=== PATIENT | female | born 1995 | race Caucasian/White ===

== ENCOUNTER 2016-09-27 16:51 | Observation (INO) | payer MEDICAID ==
--- NOTE | 2016-09-27 17:16 | ER Document Report ---
ED Medical Screen (RME) - General Stated Complaint: LUMP ON LEFT BREAST Mode of Arrival: Ambulatory Information source: Patient Notes: Patient reports a large palpable left breast that she attempted to pop and had green drainage. Patient reports symptoms started about a week ago. No fever. hx: None I have greeted and performed a rapid initial assessment of this patient. A comprehensive ED assessment and evaluation of the patient, analysis of test results and completion of the medical decision making process will be conducted by additional ED providers. Physical Exam - Vital signs Vitals: Temp Pulse Resp BP Pulse Ox 98.2 F 108 H 16 101/83 95 09/27/16 16:55 09/27/16 16:55 09/27/16 16:55 09/27/16 16:55 09/27/16 16:55 - General General appearance: Appears well, Alert In distress: None Course - Vital Signs Vital signs: Temp Pulse Resp BP Pulse Ox 98.2 F 108 H 16 101/83 95 09/27/16 16:55 09/27/16 16:55 09/27/16 16:55 09/27/16 16:55 09/27/16 16:55
[2016-09-27] MEDS ORDERED: NORMAL SALINE 1000 ML 1,000 ML IV ONE (19:12)
[2016-09-27] MEDS ORDERED: ONDANSETRON HCL INJ/PF 4 MG/2 ML SDV IV ONE (19:13)
[2016-09-27] MEDS ORDERED: HYDROMORPHONE HCL INJ/PF 2 MG/ML AMPULE IV ONE (19:13)
[2016-09-27] MEDS ORDERED: CLINDAMYCIN 600 MG/D5W RTU 50 ML IV ONE (19:15)
--- NOTE | 2016-09-27 19:27 | ER Document Report ---
ED Skin Rash/Insect Bite/Abscs - General Chief Complaint: Cyst Stated Complaint: LUMP ON LEFT BREAST Mode of Arrival: Ambulatory Information source: Patient Notes: 21-year-old female presents to the emergency department complaining of areas of tenderness and swelling to left breast. Patient reports first noted pimple- like area to the lateral left breast approximately 6 days ago which has increased in size, redness, and pain. Reports associated drainage and chills with unmeasured temperature at home. States is approximately 6 months and stopped breast-feeding one month ago. Denies nipple drainage. TRAVEL OUTSIDE OF THE [place] IN LAST 30 DAYS: No - HPI Patient complains to provider of: Tender/swollen area Onset/Duration: Worse Quality of pain: Achy Severity: Moderate Pain Level: 4 Skin Character: Abscess, Erythema, Tenderness, Warm Skin Temperature: Warm Quality of rash: Painful Similar symptoms previously: No Recently seen / treated by doctor: No - Related Data Allergies/Adverse Reactions: No Known Allergies Allergy (Unverified 09/27/16 17:16) Home Medications: Current Home Medications No Home Medications 09/27/16 [History] Past Medical History - General Information source: Patient - Social History Smoking Status: Current Every Day Smoker Chew tobacco use (# tins/day): No Frequency of alcohol use: None Drug Abuse: None Lives with: Family Family History: Reviewed & Not Pertinent Patient has suicidal ideation: No Patient has homicidal ideation: No - Medical History Medical History: Negative Renal/ Medical History: Denies: Hx Peritoneal Dialysis Surgical Hx: Negative - Immunizations Hx Diphtheria, Pertussis, Tetanus Vaccination: Yes Review of Systems - Review of Systems Constitutional: No symptoms reported EENT: No symptoms reported Cardiovascular: No symptoms reported Respiratory: No symptoms reported Gastrointestinal: No symptoms reported Genitourinary: No symptoms reported Female Genitourinary: No symptoms reported Musculoskeletal: No symptoms reported Skin: See HPI Hematologic/Lymphatic: No symptoms reported Neurological/Psychological: No symptoms reported -: Yes All other systems reviewed and negative Physical Exam - Vital signs Vitals: Temp Pulse Resp BP Pulse Ox 98.2 F 108 H 16 101/83 95 09/27/16 16:55 09/27/16 16:55 09/27/16 16:55 09/27/16 16:55 09/27/16 16:55 - General General appearance: Alert In distress: None - HEENT Head: Normocephalic, Atraumatic Eyes: Normal Pupils: PERRL - Respiratory Respiratory status: No respiratory distress Chest status: Nontender Breath sounds: Normal Chest palpation: Normal - Cardiovascular Rhythm: Regular Heart sounds: Normal auscultation Murmur: No Pulses: Normal: Radial Normal capillary refill: Yes - Abdominal Inspection: Normal Distension: No distension Bowel sounds: Normal Tenderness: Nontender Organomegaly: No organomegaly - Skin Skin Temperature: Warm Skin Moisture: Dry Skin Color: Normal Skin irregularity: Abscess, Erythema, Tender indurated area - approximately 5-6 cm diameter area of erythema, tenderness, warmth, skin thickening, central fluctuance, and eschar/necrotic tissue to the left lateral breast. No nipple changes or drainage. Course - Re-evaluation Re-evalutation: 09/27/16 19:30 Patient hemodynamically stable, in no distress, afebrile. Patient presentation and findings discussed with surgeon Dr. Diaz who agrees to evaluate patient in the emergency department, assume care, and admit for I&D. Plan discussed with patient who verbalized understanding and agrees with plan. - Vital Signs Vital signs: Temp Pulse Resp BP Pulse Ox 98.0 F 95 18 134/75 H 99 09/27/16 19:56 09/27/16 19:56 09/27/16 19:56 09/27/16 19:56 09/27/16 19:56 Discharge - Discharge Clinical Impression: Breast abscess Disposition: ADMITTED OBSERVATION Admitting Provider: Surgicalist - Dr. Diaz
--- NOTE | 2016-09-27 19:53 | HISTORY AND PHYSICAL E ---
History and Physical NAME: MATILDA RESTREPO : 1995 AGE: 21Y ADMITTED: 09/27/2016 ROOM: HISTORY OF PRESENT ILLNESS: The patient is a 21-year-old female patient presenting with history of left breast area pain, redness, increasing swelling for the past few days increasing in severity. The patient tolerated the pimple but she did not recollect how it started out and the area which was about a dime size and increased all the way about a couple of inches and some of the skin got darker in color with surrounding area, increasing redness, and started having more pain and came to the emergency room. PAST MEDICAL HISTORY: No medical issues. PAST SURGICAL HISTORY: No major surgeries. She is 6 months . She was breast-feeding until a few weeks ago, not currently. REVIEW OF SYSTEMS: Per examination. PHYSICAL EXAMINATION: GENERAL: She is an otherwise healthy looking 21-year-old female patient not in any distress. HEAD/NECK: No lymphadenopathy, no masses. LUNGS: Both lungs are clear to auscultation. CARDIOVASCULAR: Heart sounds regular, no murmurs or gallops. ABDOMINAL: Soft, nontender. No masses palpable. No hernia. BREASTS: Left breast, mostly in the upper outer quadrant and mid part of the left breast on the lateral side, there is an about 8-10 cm of erythema with induration of the skin. In the central part there is about a 4 cm area of skin necrosis with possible abscess underneath. There is some alveolar lymphadenopathy palpable. The other side of the breast is normal. IMPRESSION OVERALL: 1. Cellulitis of the left breast area. 2. Necrotic wound. 3. Probable underlying abscess. PLAN: Admit for IV antibiotic. Cellulitis debridement also to be done of the abscess. Unfortunately, she just ate and will not able to it, so will admit for IV antibiotic and then plan for possible debridement and drainage while in the hospital. DICTATING PHYSICIAN: JULI CABRAL M.D. [id number] PHY#: [id number] ID: [id number] JOB#: [id number] ACCT: [id number] cc:JULI CABRAL M.D. > [facility]
[2016-09-27] MEDS: AMPICILLIN SODIUM/SULBACTAM NA 3 GM in NORMAL SALINE 100 ML IV SCH (23:41)
[2016-09-27] MEDS ORDERED: CLINDAMYCIN 600 MG/D5W RTU 600 MG/50 ML RTUPB IV ONE (23:59)
[2016-09-28] MEDS ORDERED: NICOTINE 21 MG/24 HR PATCH.TD24 TD ONE (00:15)
[2016-09-28] MEDS: HYDROCODONE/ACETAMINOPHEN 5-325 MG TABLET PO PRN ×3 (00:18→13:26)
[2016-09-28] MEDS: AMPICILLIN SODIUM/SULBACTAM NA 3 GM in NORMAL SALINE 100 ML IV SCH ×3 (05:14→17:04)
[2016-09-28 05:15] LABS: ABSOLUTE BASOPHILS # (AUTO) 0.1 10^3/uL (0.0-0.2); ABSOLUTE EOSINOPHILS # (AUTO) 0.3 10^3/uL (0.0-0.6); ABSOLUTE LYMPHOCYTES (AUTO) 3.4 10^3/uL (0.5-4.7); BASOPHILS % (AUTO) 0.9 % (0-2); EOSINOPHILS % (AUTO) 3.1 % (0-6); HEMOGLOBIN 11.4 g/dL (12.0-15.5); HGB HCT DIFFERENCE -0.8; LYMPHOCYTES % (AUTO) 31.2 % (13-45); MEAN CORPUSCULAR HEMOGLOBIN 24.7 pg (27.0-33.4); MEAN CORPUSCULAR HGB CONC 32.6 g/dL (32.0-36.0); MEAN CORPUSCULAR VOLUME 76 fl (80-97); MONOCYTES % (AUTO) 9.1 % (3-13); RED BLOOD COUNT 4.62 10^6/uL (3.72-5.28); RED CELL DISTRIBUTION WIDTH 16.5 % (11.5-14.0); SEGMENTED NEUTROPHILS % (AUTO) 55.7 % (42-78); WHITE BLOOD COUNT 10.8 10^3/uL (4.0-10.5)
[2016-09-28] MEDS ORDERED: ONDANSETRON HCL INJ/PF 4 MG/2 ML SDV ONE ×2 (08:19→16:18)
[2016-09-28] MEDS ORDERED: DEXAMETHASONE SOD PHOSPHATE INJ 4 MG/1 ML VIAL ONE (08:19)
[2016-09-28] MEDS ORDERED: SUCCINYLCHOLINE CHLORIDE INJ 200 MG/10 ML VIAL ONE (08:19)
[2016-09-28] MEDS ORDERED: LIDOCAINE 2% INJ-PF (20 MG/ML) 10 ML AMPUL ONE (08:19)
[2016-09-28] MEDS ORDERED: METOCLOPRAMIDE HCL INJ/PF 10 MG/2 ML SDV ONE (08:19)
[2016-09-28] MEDS ORDERED: KETOROLAC TROMETHAMINE 60 MG/2 ML SDV ONE (08:19)
[2016-09-28] MEDS ORDERED: NICOTINE 21 MG/24 HR PATCH.TD24 TD SCH (10:00)
[2016-09-28] MEDS ORDERED: FENTANYL CITRATE INJ/PF 100 MCG/2 ML AMPUL IV PRN ×3 (10:39)
[2016-09-28] MEDS ORDERED: MEPERIDINE HCL/PF INJ 25 MG/1 ML DISP.SYRIN IV PRN (10:39)
[2016-09-28] MEDS ORDERED: DIPHENHYDRAMINE HCL 50 MG/ML VIAL IV PRN (10:39)
[2016-09-28] MEDS ORDERED: MORPHINE SULFATE 10 MG/ML INJ IV PRN (10:39)
[2016-09-28] MEDS ORDERED: PROMETHAZINE HCL INJ 25 MG/1 ML VIAL IV PRN ×2 (10:39)
[2016-09-28] MEDS ORDERED: EPHEDRINE SULFATE INJ 50 MG/1 ML AMPULE ONE (10:43)
[2016-09-28] MEDS ORDERED: FENTANYL CITRATE INJ/PF 100 MCG/2 ML AMPUL ONE (10:43)
[2016-09-28] MEDS ORDERED: MIDAZOLAM 2 MG/2 ML INJ ONE (10:43)
[2016-09-28] MEDS ORDERED: PROPOFOL INJ 200 MG/20 ML VIAL IV ONE (10:44)
[2016-09-28] MEDS ORDERED: ACETAMINOPHEN 100 ML IV ONE (10:44)
[2016-09-28] MEDS ORDERED: DEXMEDETOMIDINE INJ 80 MCG/20 ML VIAL IV ONE (10:44)
--- NOTE | 2016-09-28 12:43 | DISCHARGE SUMMARY E ---
Discharge Summary NAME: MATILDA RESTREPO : 1995 AGE: 21Y ADMITTED: 09/27/2016 DISCHARGED: 09/28/2016 ADMITTING DIAGNOSES: Left breast cellulitis and necrotic soft tissue infection. HOSPITAL COURSE: Today we *------* drained the abscess. The wound is much press cleaner. She is doing well. We will discharge her home with p.o. antibiotic Bactrim and follow up in the office and surgery clinic in 2 weeks. DICTATING PHYSICIAN: JULI CABRAL M.D. [id number] PHY#: [id number] ID: [id number] JOB#: [id number] ACCT: [id number] cc:JULI CABRAL M.D. >
--- NOTE | 2016-09-28 13:48 | OPERATIVE REPORT E ---
Operative Report NAME: MATILDA RESTREPO : 1995 AGE: 21Y DATE OF SURGERY: 09/28/2016 ROOM: 405 PREOPERATIVE DIAGNOSIS: Left breast abscess with a necrotic soft tissue infection. POSTOPERATIVE DIAGNOSIS: Left breast abscess with a necrotic soft tissue infection. OPERATION: Incision and drainage of the left breast abscess along with excisional debridement of the soft tissue necrosis, about a 2 cm depth, most likely due to spider bite. SURGEON: JULI CABRAL M.D. ANESTHESIA: General. BLOOD LOSS: Less than 5 mL. SPECIMEN: Necrotic tissue for cultures. HISTORY AND INDICATION: As described. DESCRIPTION OF PROCEDURE: The patient was placed in the supine position with CD boots. She was given continued antibiotic, IV Unasyn. The left breast are cleaned and draped for sterile field. On the lateral aspect of the left breast, about 3 cm of necrotic skin opened. Underlying, there was an abscess, which was drained and sent for cultures, and some of the necrotic tissue was and was debrided up to the healthy margins. Complete hemostasis was secured. The wound was irrigated. . DICTATING PHYSICIAN: JULI CABRAL M.D. [id number] PHY#: [id number] ID: [id number] JOB#: [id number] ACCT: [id number] cc:JULI CABRAL M.D. > [facility]
[2016-09-28] MEDS ORDERED: HYDROCODONE/ACETAMINOPHEN 5-325 MG TABLET PO ONE (15:00)
[2016-09-28] MEDS ORDERED: ONDANSETRON HCL INJ/PF 4 MG/2 ML SDV IV PRN (16:23)
[2016-09-28 18:25] VITALS: BP 117/69
== END 2016-09-28 18:45 | disposition home or self-care (01) ==
LOC: ER 16:51 → UNDOADMOB 20:12 → EH 20:12 → 4N 22:34 → EH 22:34 → 4N 22:42 → EH 22:42
PROVIDERS: ADMIT Colon & Rectal Surgery; ATTEND Colon & Rectal Surgery
PROC: 0H9UXZZ (ICD-10-PCS; principal; 2016-09-27)
PROC: 3E033GC Introduction of Other Therapeutic Substance into Peripheral Vein, Percutaneous Approach (ICD-10-PCS; 2016-09-27)
PROC: 3E033GC Introduction of Other Therapeutic Substance into Peripheral Vein, Percutaneous Approach (ICD-10-PCS; 2016-09-27)
DX: N61.1 Abscess of the breast and nipple (principal); F17.200 Nicotine dependence, unspecified, uncomplicated
CPT/HCPCS: 99285; 96374; 96375; 36415; 87040 ×2; 87070; 87205; 85025; 87075; 87077 ×2; 87186 ×2; 19120; J2250; J1100; J1885; J3010; J0295 ×2; J2765; J1170; J0330; J2405 ×2; J2704; J3490 ×3; J0131; 400; G0378